=== PATIENT | male | born 1960 | race Caucasian/White ===

== ENCOUNTER 2019-01-17 20:40 | Outpatient (CLI) | END 2019-01-17 20:58 | disposition short-term general hospital (02) | LOC: AMBL 20:40 | PROVIDERS: ATTEND Internal Medicine Geriatric Medicine | DX: E11.649 Type 2 diabetes mellitus with hypoglycemia without coma (principal); Z79.4 Long term (current) use of insulin; R53.1 Weakness; R11.0 Nausea ==